=== PATIENT | male | born 1975 | race Hispanic/Latino ===

== ENCOUNTER 2023-03-09 10:05 | Emergency (ER) | payer MEDICAID, SELFPAY ==
[2023-03-09 10:10] VITALS: BP 132/84; PULSE 54; RESP 18; TEMP 36.1; O2SAT 99
--- NOTE | 2023-03-09 12:15 | ED.GENADULT ---
HPI - General Adult General Chief complaint: Skin/Abscess/Foreign Body Stated complaint: rash Time Seen by Provider: 03/09/23 11:21 Source: patient and family Mode of arrival: ambulatory Limitations: no limitations History of Present Illness HPI narrative: This is a 47-year-old [place]oc[place]-speaking male who presents to the ED with his family member who is translating. He presents for 1 week of a rash that is spreading. He reports it started on the right arm and has since spread to the torso and all of his extremities. He reports intense itching. Most of Benadryl today with minimal relief. Minimal relief with cortisone cream as well. States he was working outside before this started. No new meds, soaps or lotions, pets or animals, skin exposures. Denies any troubles with breathing or lip swelling. Related Data Allergies Allergy/AdvReac Type Severity Reaction Status Date / Time No Known Allergies Allergy Verified 03/09/23 11:07 Review of Systems Review of Systems: CONSTITUTIONAL: Denies fever, chills, or sweats. EYES: Denies visual changes, redness, or discharge. ENT: Denies rhinorrhea, congestion, sore throat, or otalgia. CARDIOVASCULAR: Denies chest pain, palpitations, or edema. RESPIRATORY: Denies cough or dyspnea. GASTROINTESTINAL: Denies abdominal pain, nausea, vomiting, or diarrhea. GENITOURINARY: Denies dysuria or hematuria. SKIN: See HPI MUSCULOSKELETAL: Denies back pain, joint pain, or myalgia. NEUROLOGIC: Denies headache, numbness, dizziness, or weakness. PSYCHIATRIC: Denies anxiety or depression. Exam Narrative: GENERAL: Well-appearing, well-nourished, and in no acute distress. HEAD: Normocephalic, atraumatic. EYES: PERRLA and EOMI. ENT: Nares clear, no rhinorrhea or epistaxis. Mucous membranes moist. Oropharynx without tonsillar hypertrophy exudate or other lesions. NECK: Supple. No adenopathy or masses. CHEST: No respiratory distress. Clear to auscultation. No wheezes rales or rhonchi HEART: Regular rate and rhythm. No murmur heard. Normal peripheral pulses. ABDOMEN: Soft, nontender, nondistended, normal active bowel sounds. MSK: Normal range of motion. No edema. SKIN: Diffuse maculopapular rash most concentrated on the right arm. NEURO: Alert and oriented x3. No focal deficits. PSYCH: Normal mood and affect. Course Vital Signs Vital signs: Vital Signs Temperature 97.0 F L 03/09/23 10:10 Pulse Rate 54 L 03/09/23 10:10 Respiratory Rate 18 03/09/23 10:10 Blood Pressure 132/84 03/09/23 10:10 Pulse Oximetry 99 03/09/23 10:10 Oxygen Delivery Room Air 03/09/23 10:10 Temperature 97.0 F L 03/09/23 10:10 Pulse Rate 54 L 03/09/23 10:10 Respiratory Rate 18 03/09/23 10:10 Blood Pressure 132/84 03/09/23 10:10 Pulse Oximetry 99 03/09/23 10:10 Oxygen Delivery Room Air 03/09/23 10:10 Medical Decision Making MDM Narrative Medical decision making narrative: This is a 47-year-old male who presents to the ED with chief complaint of a maculopapular rash that is diffuse. Vitals are stable. He was working out in the yard when this started. Rashes been spreading since onset. It is intensely itchy. It is consistent with allergic dermatitis due to something like poison treva. Instructed to keep taking Benadryl and using cortisone cream. Prescriptions for Zanfel and prednisone were sent. He is stable for discharge. Return precautions given and supportive measures discussed. Patient is understanding and agreeable with plan for discharge and follow-up. Vital Signs Vital Signs: Vital Signs Temperature 97.0 F L 03/09/23 10:10 Pulse Rate 54 L 03/09/23 10:10 Respiratory Rate 18 03/09/23 10:10 Blood Pressure 132/84 03/09/23 10:10 Pulse Oximetry 99 03/09/23 10:10 Oxygen Delivery Room Air 03/09/23 10:10 Temperature 97.0 F L 03/09/23 10:10 Pulse Rate 54 L 03/09/23 10:10 Respiratory Rate 18 03/09/23 10:10 Blood Pressure 132/84 03/09/23
== END 2023-03-09 12:29 | disposition home or self-care (01) ==
PROVIDERS: Emergency Provider Physician Assistant; PCP Family Medicine
DX: L23.9 Allergic contact dermatitis, unspecified cause (principal)
CPT/HCPCS: 99283